=== PATIENT | female | born 1975 | race Hispanic/Latino ===

== ENCOUNTER 2021-09-27 10:30 | Emergency (ER) | payer OTHER, BC ==
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
[2021-09-27] MEDS ORDERED: IBUPROFEN 100 MG/5 ML UCUP ONE (13:04)
[2021-09-27] MEDS ORDERED: KETOROLAC 30 MG/ML INJ ONE (13:41)
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
[2021-09-27 14:36] VITALS: O2SAT 100
[2021-09-27 14:37] VITALS: BP 134/83; TEMP 98.3
== END 2021-09-27 14:14 | disposition home or self-care (01) ==
LOC: ER 10:30
DX: S39.012A Strain of muscle, fascia and tendon of lower back, initial encounter (principal); S39.013A Strain of muscle, fascia and tendon of pelvis, initial encounter; S39.011A Strain of muscle, fascia and tendon of abdomen, initial encounter; S80.11XA Contusion of right lower leg, initial encounter
CPT/HCPCS: 72100

== ENCOUNTER 2021-10-11 17:31 | Emergency (ER) | payer BC ==
--- NOTE | 2021-10-11 19:39 | ER ---
Nurse's Notes [facility] Name: Makenzie Dumont Age: 46 yrs Sex: Female : 1975 Arrival Date: 10/11/2021 Time: 17:34 Bed Waiting Private MD: Diagnosis: ED Course: 10/11 17:34 Patient arrived in ED. as 18:17 Cliff Schwartz PA is PHCP. cp 18:17 Cliff Tristan MD is Attending Physician. cp Administered Medications: No medications were administered Outcome: 19:38 Patient left the ED. vc1 Signatures: Anum Ziegler as Cliff Schwartz PA PA cp Lida Goldsmith RN RN vc1
== END 2021-10-11 19:38 | disposition left against medical advice (07) ==
LOC: ER 17:31
DX: Z02.9 Encounter for administrative examinations, unspecified (principal)